=== PATIENT | male | born 1950 | race Caucasian/White ===

== ENCOUNTER → 2017-11-14 | Outpatient (CLI) | payer MEDICARE ==
--- NOTE | 2017-11-14 13:56 | Diagnostic Imaging Report ---
PROCEDURE: US Renal Bilateral. TECHNIQUE: Multiple real-time grayscale images were obtained over the kidneys in various projections bilaterally. INDICATION: Chronic kidney disease. FINDINGS: The right kidney measures 10.7 x 6.3 x 6.4 cm and the left kidney measures 10.7 x 6.5 x 4.7 cm. There is significant hydronephrosis bilaterally. No calculi are seen. No renal mass is identified. Urinary bladder contains a large amount of debris. The right ureteral jet was visualized. Left ureteral jet was not visualized. IMPRESSION: Significant bilateral hydronephrosis. There is also moderate debris within the urinary bladder. Dictated by: Dictated on workstation # [id number]
== END ==
LOC: RAD 09:43
PROVIDERS: ATTEND Internal Medicine
DX: N18.9 Chronic kidney disease, unspecified (principal); N13.30 Unspecified hydronephrosis
CPT/HCPCS: 76770

== ENCOUNTER → 2018-06-12 | Outpatient (CLI) | payer MEDICARE ==
--- NOTE | 2018-06-12 11:50 | Diagnostic Imaging Report ---
CLINICAL INDICATION: Patient with chronic kidney disease. EXAM: Ultrasound of both kidneys. COMPARISON: Ultrasound of both kidneys dated 11/14/2017. FINDINGS: There is stable severe bilateral hydroureteronephrosis. Only the proximal portions of the ureters are noted with the right and left sides measuring at least 4.8 cm and 4.0 cm in greatest width, respectively. The right and left kidneys measure 13.0 cm and 11.7 cm, respectively. Again noted debris and multiple echoes within the bladder. The bladder is fluid distended. There is irregularity involving the bladder wall, which may be related to bladder wall thickening. Right ureteral jet is seen. The left ureteral jet is not seen on this exam. IMPRESSION: 1: Stable severe bilateral hydroureteronephrosis. 2: Again seen debris within the bladder. There is mild bladder wall irregularity and thickening. Cystitis cannot be completely excluded. Dictated by: Dictated on workstation # [id number]
== END ==
LOC: RAD 10:00
PROVIDERS: ATTEND Internal Medicine
DX: N18.9 Chronic kidney disease, unspecified (principal); N13.30 Unspecified hydronephrosis; N32.89 Other specified disorders of bladder
CPT/HCPCS: 76770

== ENCOUNTER → 2018-07-06 | Outpatient (CLI) | payer MEDICARE ==
--- NOTE | 2018-07-06 19:12 | Diagnostic Imaging Report ---
PROCEDURE: US Renal Bilateral. TECHNIQUE: Multiple real-time grayscale images were obtained over the kidneys in various projections bilaterally. INDICATION: Obstruction. COMPARISON: 06/12/2018. FINDINGS: There has been substantial degree of improvement in bilateral mild hydronephrosis with thickening of the urinary bladder wall and mass effect indenting the bladder base via the prostate unchanged. Right kidney measures 11.5 cm and the left 9.8 cm. IMPRESSION: Significant improvement in bilateral pyelocaliectasis and hydronephrosis with urinary bladder wall thickening and prominent prostatic bladder base indentation. Dictated by: Dictated on workstation # [id number]
== END ==
LOC: RAD 15:23
PROVIDERS: ATTEND Urology
DX: N13.30 Unspecified hydronephrosis (principal); N32.89 Other specified disorders of bladder
CPT/HCPCS: 76770